=== PATIENT | female | born 1960 | race Caucasian/White ===

== ENCOUNTER 2016-12-19 00:50 | Emergency (ER) | payer OTHER ==
[2016-12-19 00:59] VITALS: BP 145/86; PULSE 75; TEMP 97.6; BMI 26.6
--- NOTE | 2016-12-19 01:42 | PDOC ---
History of Present Illness <Bertha Olivoie - Last Filed: 12/19/16 04:33> - History of Present Illness Initial Comments: 12/19/16 01:38 The patient is a 56 year old female with no significant past medical history who presents to the emergency department with reported 10/10 arm pain after she fell while taking out the garbage. The patient denies chest pain, shortness of breath, headache and dizziness. Denies fever, chills, nausea, vomit, diarrhea and constipation. Denies dysuria, frequency, urgency and hematuria. 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 Social history: Denies alcohol or illicit drug use, endorses smoking approximately 1 pack per week PMD - None 12/19/16 02:01 12/19/16 02:01 12/19/16 02:37 <Fernando Prajapati - Last Filed: 12/19/16 07:31> <Una Diamond - Last Filed: 12/19/16 20:23> - General Chief Complaint: Injury Stated Complaint: FALL Time Seen by Provider: 12/19/16 01:33 Past History <Regina Olivo - Last Filed: 12/19/16 04:33> - Psycho/Social/Smoking Cessation Hx Suicidal Ideation: No Smoking History: Never smoked Have you smoked in the past 12 months: No Information on smoking cessation initiated: No Hx Alcohol Use: No Drug/Substance Use Hx: No <Fernando Prajapati - Last Filed: 12/19/16 07:31> <Una Diamond - Last Filed: 12/19/16 20:23> - Past Medical History Allergies/Adverse Reactions: Allergies Allergy/AdvReac Type Severity Reaction Status Date / Time No Known Allergies Allergy Verified 12/19/16 01:52 Home Medications: Ambulatory Orders Ibuprofen [Motrin -] 600 mg PO QID #20 tablet 12/19/16 Review of Systems - Review of Systems Comments:: 12/19/16 01:38 GENERAL/CONSTITUTIONAL: No fever or chills. No weakness. HEAD, EYES, EARS, NOSE AND THROAT: No change in vision. No ear pain or discharge. No sore throat. CARDIOVASCULAR: No chest pain or shortness of breath RESPIRATORY: No cough, wheezing, or hemoptysis. GASTROINTESTINAL: No nausea, vomiting, diarrhea or constipation. GENITOURINARY: No dysuria, frequency, or change in urination. MUSCULOSKELETAL: Left arm pain reported 10/10 after fall. Patient reports getting cut as well. No neck or back pain. SKIN: No rash NEUROLOGIC: No headache, vertigo, loss of consciousness, or change in strength/ sensation. ENDOCRINE: No increased thirst. No abnormal weight change HEMATOLOGIC/LYMPHATIC: No anemia, easy bleeding, or history of blood clots. ALLERGIC/IMMUNOLOGIC: No hives or skin allergy. 12/19/16 02:37 <Fernando Prajapati - Last Filed: 12/19/16 07:31> *Physical Exam - Vital Signs Last Vital Signs Temp Pulse Resp BP Pulse Ox 97.6 F 75 18 145/86 100 12/19/16 00:57 12/19/16 00:57 12/19/16 00:57 12/19/16 00:57 12/19/16 00:57 <Regina Olivo - Last Filed: 12/19/16 04:33> - Vital Signs Last Vital Signs Temp Pulse Resp BP Pulse Ox 97.6 F 75 18 145/86 100 12/19/16 00:57 12/19/16 00:57 12/19/16 00:57 12/19/16 00:57 12/19/16 00:57 - Physical Exam Comments: 12/19/16 01:38 GENERAL: Awake, alert, and fully oriented, in no acute distress HEAD: No signs of trauma, normocephalic, atraumatic EYES: PERRLA, EOMI, sclera anicteric, conjunctiva clear ENT: Auricles normal inspection, hearing grossly normal, nares patent, oropharynx clear without exudates. Moist mucosa NECK: Normal ROM, supple, no lymphadenopathy, JVD, or masses LUNGS: No distress, speaks full sentences, clear to auscultation bilaterally HEART: Regular rate and rhythm, normal S1 and S2, no murmurs, rubs or gallops, peripheral pulses normal and equal bilaterally. ABDOMEN: Soft, nontender, normoactive bowel sounds. No guarding, no rebound. No masses EXTREMITIES: Left wrist abnormal in appearace. Suspected break. Small abbrasion in skin below wrist but no open fracture detected. No edema. No clubbing or cyanosis. Normal sensation, no parasthesias. NEUROLOGICAL: Cranial nerves II through XII grossly intact. Normal speech, normal gait, no focal sensorimotor deficits SKIN: Warm, Dry, normal turgor, no rashes or lesions noted. 12/19/16 02:38 <Fernando Prajapati - Last Filed: 12/19/16 07:31> - Vital Signs Last Vital Signs Temp Pulse Resp BP Pulse Ox 97.6 F 75 18 145/86 100 12/19/16 00:57 12/19/16 00:57 12/19/16 00:57 12/19/16 00:57 12/19/16 00:57 <Una Diamond - Last Filed: 12/19/16 20:23> Procedures - Joint Reduction Left Joint Reduction Site: left: Colles' Fracture Pre-Procedure NV Exam: abnormal (TINGLING OF THE MIDDLE FINGER) Conscious Sedation: No Finger Block: Hematoma Reduction Attempts: 2 Anesthetic: 2% Lidocaine Amount (mL): 10 Anesthesia: Versed (2MG ON FIRST ATTEMPT; 2MG 2ND ATTEMPT) Procedure: Colles Reduction Post-Procedure NV Exam: normal Complications: No Post Joint Reduction Film: joint reduced Splint: Yes Immobilized: Yes <Una Diamond - Last Filed: 12/19/16 20:23> ED Treatment Course - LABORATORY CBC & Chemistry Diagram: 12/19/16 02:25 12/19/16 02:25 - ADDITIONAL ORDERS Additional order review: Laboratory Results 12/19/16 02:25 Sodium 137 Potassium 4.7 Chloride 101 Carbon Dioxide 27 Anion Gap 9 BUN 14 Creatinine 0.8 Creat Clearance w eGFR > 60 Random Glucose 100 Calcium 9.3 Total Bilirubin 0.8 AST 14 L ALT 16 Alkaline Phosphatase 82 Total Protein 7.2 Albumin 4.7 12/19/16 02:25 RBC 4.71 MCV 83.5 MCHC 33.1 RDW 13.6 MPV 10.0 Neutrophils % 82.5 Lymphocytes % 12.0 Monocytes % 4.7 Eosinophils % 0.1 Basophils % 0.7 - Medications Given in the ED: ED Medications Discontinued Medications Generic Name Dose Route Start Last Admin Trade Name Freq PRN Reason Stop Dose Admin Acetaminophen 1,000 mg 12/19/16 01:59 12/19/16 02:07 Tylenol - PO 12/19/16 02:00 1,000 mg ONCE ONE Administration Diphtheria/Tetanus/Acell Pertussis 0.5 ml 12/19/16 03:17 12/19/16 03:47 Boostrix - IM 12/19/16 03:18 0.5 ml .ONCE ONE Administration Morphine Sulfate 2 mg 12/19/16 02:19 12/19/16 02:33 Morphine Injection - IVPUSH 12/19/16 02:20 2 mg ONCE ONE Administration Sodium Chloride 1,000 ml 12/19/16 02:21 12/19/16 02:33 Normal Saline - IV 12/19/16 02:22 1,000 ml ONCE ONE Administration <Regina Olivo - Last Filed: 12/19/16 04:33> - LABORATORY CBC & Chemistry Diagram: 12/19/16 02:25 12/19/16 02:25 <Fernando Prajapati - Last Filed: 12/19/16 07:31> - LABORATORY CBC & Chemistry Diagram: 12/19/16 02:25 12/19/16 02:25 - ADDITIONAL ORDERS Additional order review: 12/19/16 02:25 RBC 4.71 MCV 83.5 MCHC 33.1 RDW 13.6 MPV 10.0 Neutrophils % 82.5 Lymphocytes % 12.0 Monocytes % 4.7 Eosinophils % 0.1 Basophils % 0.7 - RADIOLOGY Radiology Studies Ordered: Category Date Time Status WRIST-LEFT [RAD] Stat Radiology 12/19/16 02:20 Completed - Medications Given in the ED: ED Medications Discontinued Medications Generic Name Dose Route Start Last Admin Trade Name Kerry PRN Reason Stop Dose Admin Acetaminophen 1,000 mg 12/19/16 01:59 12/19/16 02:07 Tylenol - PO 12/19/16 02:00 1,000 mg ONCE ONE Administration Diphtheria/Tetanus/Acell Pertussis 0.5 ml 12/19/16 03:17 12/19/16 03:47 Boostrix - IM 12/19/16 03:18 0.5 ml .ONCE ONE Administration Lidocaine HCl 0 mg 12/19/16 04:53 12/19/16 05:30 Xylocaine 2% INF 12/19/16 04:54 6 mg ONCE ONE Administration Midazolam HCl 2 mg 12/19/16 06:23 12/19/16 06:00 Versed - IVPUSH 12/19/16 06:24 2 mg ONCE ONE Administration Midazolam HCl 2 mg 12/19/16 06:45 12/19/16 07:10 Versed - IVPUSH 12/19/16 06:46 2 mg ONCE ONE Administration Morphine Sulfate 2 mg 12/19/16 02:19 12/19/16 02:33 Morphine Injection - IVPUSH 12/19/16 02:20 2 mg ONCE ONE Administration Morphine Sulfate 2 mg 12/19/16 05:12 12/19/16 05:30 Morphine Injection - IVPUSH 12/19/16 05:13 2 mg ONCE ONE Administration Sodium Chloride 1,000 ml 12/19/16 02:21 12/19/16 02:33 Normal Saline - IV 12/19/16 02:22 1,000 ml ONCE ONE Administration <Una Diamond - Last Filed: 12/19/16 20:23> Medical Decision Making - Medical Decision Making 12/19/16 04:33 Dr. Hood was paged and notified via phone service. <Regina Olivo - Last Filed: 12/19/16 04:33> - Medical Decision Making 12/19/16 02:41 Pt. BIBA after fall while taking out the garbage. Wrist appears severely fractured on exam. Sensation intact for patient, given morphine for pain control. Will X-ray and attempt to reduce. Due to abbrasion and unknown source of cutting injury will order tetanus shot as well. 12/19/16 03:14 12/19/16 06:25 Attempted reduction with hematoma block with 7mg lidocaine and 2 mg of versed. Placed in sugar tongs splint. Post reduction films ordered for confirmation. <Fenrando Prajapati - Last Filed: 12/19/16 07:31> *DC/Admit/Observation/Transfer <Regina Olivo - Last Filed: 12/19/16 04:33> - Attestations Physician Attestion: 12/19/16 02:43 I, Dr. Fernando Prajapati, attest that this document has been prepared under my direction and personally reviewed by me in its entirety. I further attest, that it accurately reflects all work, treatment, procedures and medical decision -making performed by me. <Fernando Prajapati - Last Filed: 12/19/16 07:31> <Una Diamond - Last Filed: 12/19/16 20:23> Diagnosis at time of Disposition: Radial head fracture, closed Qualifiers: Encounter type: initial encounter Fracture alignment: displaced Laterality: unspecified laterality Qualified Code(s): S52.123A - Displaced fracture of head of unspecified radius, initial encounter for closed fracture - Discharge Dispostion Disposition: HOME Condition at time of disposition: Improved - Prescriptions Prescriptions: Ibuprofen [Motrin -] 600 mg PO QID #20 tablet - Referrals Referrals: Dov Langford MD [Staff Physician] - - Patient Instructions Printed Discharge Instructions: How to Use a Sling Additional Instructions: Follow up with Orthopedics for evaluation of wrist. Please return to ER immediately if you have any loss of sensation or strength, fever, or increased pain.
[2016-12-19] MEDS ORDERED: ACETAMINOPHEN 325 MG TABLET (FP) PO ONE (01:58)
[2016-12-19] MEDS ORDERED: ACETAMINOPHEN 500 MG TABLET (FP) PO ONE (01:59)
[2016-12-19] MEDS ORDERED: ACETAMINOPHEN 325 MG TABLET (FP) ONE (02:02)
[2016-12-19] MEDS ORDERED: morphine CARPU-JECT 2 MG/1 ML DISP.SYRIN IVPUSH ONE ×2 (02:19→05:12)
[2016-12-19] MEDS ORDERED: SODIUM CHLORIDE 0.9% 500 ML INFUS.BAG IV ONE (02:21)
[2016-12-19] MEDS ORDERED: morphine CARPU-JECT 4 MG/1 ML DISP.SYRIN ONE ×2 (02:25→05:14)
[2016-12-19 02:48] LABS: BASOPHIL 0.7 % (0-2.0); EOSINOPHIL 0.1 % (0-4.5); MCH 27.6 pg (25.7-33.7); MCHC 33.1 g/dl (32.0-36.0); MEAN CELL VOLUME 83.5 fl (80-96); NEUTROPHILS 82.5 % (42.8-82.8); PLATELET COUNT 173 K/MM3 (134-434); RDW 13.6 % (11.6-15.6); WHITE BLOOD COUNT 8.5 K/mm3 (4.0-10.0)
[2016-12-19] MEDS ORDERED: DIPHTH,PERTUSS(ACELL),TET 0.5 ML DISP.SYRIN IM ONE (03:17)
[2016-12-19 03:27] LABS: ALBUMIN 4.7 g/dl (3.4-5.0); ANION GAP 9 (8-16); BILIRUBIN,TOTAL 0.8 mg/dL (0.2-1.0); CALCIUM 9.3 mg/dL (8.5-10.1); CO2 27 mmol/L (21-32); CREATININE 0.8 mg/dL (0.55-1.02); GLUCOSE,RANDOM 100 mg/dL (74-106); SGOT/AST 14 U/L (15-37); SGPT/ALT 16 U/L (12-78); TOT PROT 7.2 g/dl (6.4-8.2)
[2016-12-19 03:28] LABS: ALK PHOS 82 U/L (45-117)
[2016-12-19] MEDS ORDERED: LIDOCAINE 1%/EPI 1:100000 (50 ML MULTI DOSE VIAL) ONE (04:30)
[2016-12-19] MEDS ORDERED: LIDOCAINE HCL 2% (50ML VIAL) INF ONE (04:53)
[2016-12-19] MEDS ORDERED: MIDAZOLAM HCL 2 MG/2 ML SINGLE DOSE VIAL ONE ×2 (06:05→06:50)
[2016-12-19] MEDS ORDERED: MIDAZOLAM HCL 2 MG/2 ML SINGLE DOSE VIAL IVPUSH ONE ×2 (06:23→06:45)
--- NOTE | 2016-12-19 07:37 | PDOC ---
Attending Attestation - Resident Resident Name: Fernando Prajapati - HPI HPI: 12/19/16 20:26 ABOVE - Physicial Exam PE: 12/19/16 20:26 NATE; NEUROVASCULAR INTACT AFTER REDUCTION OF COLLES FX - Medical Decision Making 12/19/16 20:26 XR NOT DONE AFTER 2ND REDUCTION TO IMPROVE HER WRIST REDUCTION. SHE WILL FOLLOW WITH DR. LUONG OR DR. RAMOS
== END 2016-12-19 08:00 | disposition home or self-care (01) ==
LOC: JER 00:50
PROC: 0PSJXZZ Reposition Left Radius, External Approach (ICD-10-PCS; principal; 2016-12-19)
PROC: 0PSLXZZ Reposition Left Ulna, External Approach (ICD-10-PCS; 2016-12-19)
PROC: 3E0234Z Introduction of Serum, Toxoid and Vaccine into Muscle, Percutaneous Approach (ICD-10-PCS; 2016-12-19)
PROC: 3E033NZ Introduction of Analgesics, Hypnotics, Sedatives into Peripheral Vein, Percutaneous Approach (ICD-10-PCS; 2016-12-19)
DX: S52.592A Other fractures of lower end of left radius, initial encounter for closed fracture (principal); S52.692A Other fracture of lower end of left ulna, initial encounter for closed fracture; W18.39XA Other fall on same level, initial encounter; Y93.H9 Activity, other involving exterior property and land maintenance, building and construction; Y92.018 Other place in single-family (private) house as the place of occurrence of the external cause
CPT/HCPCS: 25605; 36415; 73110-TC-LT; 80053; 85025; 90471; 90715; 96374; 96375; 99283-25

== ENCOUNTER 2017-03-01 16:26 | Emergency (ER) | payer OTHER ==
[2017-03-01 16:44] VITALS: BP 144/91; PULSE 70; TEMP 97.9; BMI 24.2
--- NOTE | 2017-03-01 17:46 | PDOC ---
History of Present Illness - General Chief Complaint: Bone Injury Stated Complaint: PAIN Time Seen by Provider: 03/01/17 17:20 History Source: Patient Exam Limitations: No Limitations - History of Present Illness Initial Comments: 03/01/17 17:57 My chief complaint: Left wrist pain History of present illness: Patient is a 56-year-old female who denies any medical issues or psychiatric issues here today complaining of left wrist pain worse in the last few days with decreased ability to been left wrist or left thumb. He was seen here on 12/19/2016 after falling showing her distal radius and ulnar fracture was comminuted and dorsally displaced. Patient had a joint reduction done here, she was placed in a sugar tong or the glass splint, patient did not follow-up with orthopedist as recommended. Patient reports that she was unable to get to [facility] follow-up with Dr. Langford/Ebonie or [facility]. Patient had called Drs. Bob's office however they do not take Medicaid and was unable to be seen. Patient has not returned here since the fall. Patient denies taking off sugar tong splint, admits to unwrapping soren wrap at times. Patient reports that pain in her dorsal left wrist has gotten worse the last few days and that she is unable to straighten her left thumb at the PIP joint. Patient reports that she was able to do this prior to her fall. Patient denies any numbness of her wrist or hand. Patient has decreased range of motion of other digits left hand and of her dorsal wrist. There is deformity noted at the dorsal. Patient reports being right hand dominant. 03/01/17 18:45 Occurred: reports: other (12/19/16) Severity: reports: moderate Upper Extremity Pain Location: left: other (wrist, thumb) Method of Injury: reports: fell (on 12/19/16) Modifying Factors: improves with: None Extremity Pain Location - Extremity Pain Location Extremity Pain Locations: left: thumb, other (wrist ) Past History - Past Medical History Allergies/Adverse Reactions: Allergies Allergy/AdvReac Type Severity Reaction Status Date / Time No Known Allergies Allergy Verified 12/19/16 01:52 Home Medications: Ambulatory Orders Ibuprofen [Motrin -] 600 mg PO QID #20 tablet 12/19/16 Naproxen [Naprosyn -] 500 mg PO BID PRN #13 tablet 03/01/17 - Suicide/Smoking/Psychosocial Hx Smoking History: Never smoked Have you smoked in the past 12 months: No Information on smoking cessation initiated: No Hx Alcohol Use: No Drug/Substance Use Hx: No Substance Use Type: None Review of Systems - Review of Systems Able to Perform ROS?: Yes Constitutional: No: Symptoms Reported HEENTM: No: Symptoms Reported Respiratory: No: Symptoms reported Cardiac (ROS): No: Symptoms Reported ABD/GI: No: Symptoms Reported : No: Symptoms Reported Musculoskeletal: Yes: Joint Pain (left dorsal wrist ), Joint Swelling (left dorsal wrist with decreased range of motion, left thumb decreased rom IP), Other (decreased range of motion left wrist/ thumb at IP jt) Integumentary: No: Symptoms Reported Neurological: No: Symptoms reported *Physical Exam - Vital Signs Last Vital Signs Temp Pulse Resp BP Pulse Ox 97.9 F 70 20 144/91 99 03/01/17 16:40 03/01/17 16:40 03/01/17 16:40 03/01/17 16:40 03/01/17 16:40 - Physical Exam General Appearance: Yes: Appropriately Dressed Comments:: 03/01/17 18:13 radial pulse left 4+ 03/01/17 18:47 03/01/17 22:48 Extremity: positive: Normal Capillary Refill, Tender (left dorsal wrist, left thumb at dorsal IP ), Swelling (left dorsal wrist). negative: Normal Range of Motion (left wrist, left thumb IP) Integumentary: positive: Other (peeling skin wrist, palm, digits dorsally and palmar aspect ) Neurologic: positive: Normal Response, Respond to painful stimul (left wrist, hand ), Responsive Procedures - Consent Consent obtained: From Patient - Splinting Splint Location: Left: Wrist Pre-Proc Neuro Vasc Exam: normal Splint Type: Yes: Wrist (immoblizer ) Post-Proc Neuro Vasc Exam: normal Complications: No Medical Decision Making - Medical Decision Making 03/01/17 18:07 Patient is a 56-year-old female who denies any medical issues or psychiatric issues here today complaining of left wrist pain worse in the last few days with decreased ability to been left wrist or left thumb. He was seen here on after falling showing her distal radius and ulnar fracture was comminuted and dorsally displaced. Patient had a joint reduction done here, she was placed in a sugar tong or the glass splint, patient did not follow-up with orthopedist as recommended. Patient reports that she was unable to get to [facility] follow-up with Dr. Langford/Ebonie or [facility]. Patient had called [facility]rs[facility] office however they do not take Medicaid and was unable to be seen. Patient has not returned here since the fall. Patient denies taking off sugar tong splint, admits to unwrapping soren wrap at times. Patient reports that pain in her dorsal left wrist has gotten worse the last few days and that she is unable to straighten her left thumb at the IP joint. Patient reports that she was able to do this prior to her fall. Patient denies any numbness of her wrist or hand. Patient has decreased range of motion of other digits left hand and of her dorsal wrist. There is deformity noted at the dorsal. Patient reports being right hand dominant. left wrist pain with dorsal deformity noted left thumb decreased range of motion IP jt status post comminuted fracture left distal radius dorsally displacement of distal fracture fragments by one shaft width overriding. Distal ulnar fracture from 12/19/16 xray Distal radial and ulnar fracture had been reduced and Ortho-Glass applied with better atomic position the per Dr. Gannon 12/19/16 x-ray post reduction PLAN: Ortho-Glass splint removed by pt. prior to going in exam room xray left wrist/hand dorsally displaced Colle Fracture left wrist immoblizer applied Naprosyn 500 mg po now than q 12 hr prn pain # 4 tabs pt. to follow up tomorrow here with Dr. Lenz at [phone] 03/01/17 18:18 03/01/17 18:55 03/01/17 22:48 *DC/Admit/Observation/Transfer Diagnosis at time of Disposition: Contracture of joint of finger of left hand, Left wrist pain Wrist joint pain Qualifiers: Laterality: left Qualified Code(s): M25.532 - Pain in left wrist Fracture of wrist with malunion Qualifiers: Fracture type: closed Laterality: left Qualified Code(s): S62.102P - Fracture of unspecified carpal bone, left wrist, subsequent encounter for fracture with malunion - Discharge Dispostion Disposition: HOME Condition at time of disposition: Stable - Prescriptions Prescriptions: Naproxen [Naprosyn -] 500 mg PO BID PRN #13 tablet PRN Reason: Pain - Referrals Referrals: Cristian Lenz MD [Staff Physician] - - Patient Instructions Additional Instructions: Dr. Lenz here at [phone] make an appointment for tomorrow he is here from 9 AM until 12 noon tell him you were seen here today Keep wrist immobilizer on september take off to wash hand and apply lotion Try to move your fingers on your left hand as much as possible Return to emergency room if symptoms worsen or new symptoms develop Apply lotion to the dry skin on your left hand a few times a day Patient voiced understanding of discharge instructions and all questions were answered
[2017-03-01] MEDS ORDERED: NAPROXEN 500 MG TABLET (FP) PO ONE (19:00)
[2017-03-01] MEDS ORDERED: NAPROXEN 500 MG TABLET (FP) ONE (19:06)
== END 2017-03-01 19:11 | disposition home or self-care (01) ==
LOC: JERFT 16:26
PROC: 2W3DX1Z Immobilization of Left Lower Arm using Splint (ICD-10-PCS; principal; 2017-03-01)
DX: S62.102P Fracture of unspecified carpal bone, left wrist, subsequent encounter for fracture with malunion (principal); M24.542 Contracture, left hand; W19.XXXD Unspecified fall, subsequent encounter
CPT/HCPCS: 29125; 73110-TC-LT; 73130-TC-LT; 99281-25